=== PATIENT | female | born 1985 | race Caucasian/White ===

== ENCOUNTER 2024-07-04 23:14 | Inpatient (IN) | payer OTHER, SELFPAY ==
[2024-07-04] VITALS (17 sets, daily range): BP systolic 131–188; BP diastolic 70–115; BMI 37.1
--- NOTE | 2024-07-04 16:35 | ED.GENMED ---
History of Present Illness
General
Time Seen by Provider: 07/04/24 16:35
History of Present Illness
History of Present Illness:
TIME OF INITIAL ENCOUNTER: 4:35 PM
HPI: Patient came in by ambulance.
EXAM:
NUMBER AND COMPLEXITY OF PROBLEMS ADDRESSED AT THE ENCOUNTER
� Chronic conditions affecting care:
� Acute Exacerbation and/or Progression of Chronic Illness:
� Differential Diagnosis includes:
AMOUNT AND/OR COMPLEXITY OF DATA TO BE REVIEWED AND ANALYZED
� I performed an independent evaluation of and my interpretation is:
EKG:
CT:
X-rays:
Laboratory Studies:
Other:
� Review of other/old records: No old records available for review in [facility]
� Clinical information was obtained by an independent historian:
� Prescriptions/Medications Considered but not given:
� Further testing considered but not performed:
RISK OF COMPLICATIONS AND/OR MORBIDITY OR MORTALITY OF PATIENT MANAGEMENT
� Social determinants of health affecting care:
� Discussion with other providers:
� Escalation of care including admission/observation vs risk of discharge considered:
ANY OTHER UPDATES:
ED Attending Note
-
Portions of this chart may have been created with voice recognition software.� Occasional wrong word or��sound alike� substitutions may have occurred due to the inherent limitations of voice recognition software.
Discharge Plan
Discharge Date and Time
Print Language: ZIMBABWEAN
[2024-07-04 16:50] LABS: % Basophils 0.5 % (0-2); % Eosinophils 0.3 % (0-6); % Immature Granulocytes 0.6 % (0-0.5); % Lymphocytes 20.1 % (20.5-51.1); % Monocytes 5.5 % (1.7-9.3); Absolute Basophils 0.1 10^3/uL (0-0.2); Absolute Eosinophils 0.1 10^3/uL (0-0.7); Absolute Immature Granulocytes 0.1 10^3/uL (0-0.05); Absolute Lymphocytes 3.3 10^3/uL (1.2-3.4); Absolute Monocytes 0.9 10^3/uL (0.1-0.6); Absolute Neutrophils 11.9 10^3/uL (1.4-6.5); Hematocrit 42.7 % (37.0-47.0); Hemoglobin 14.2 g/dL (12.0-16.0); Mean Corp Hgb Conc. 33.3 g/dL (33.0-37.0); Mean Corpuscular Hgb 29.2 pg (27.0-31.0); Mean Corpuscular Volume 87.7 fL (81.0-99.0); Mean Platelet Volume 9.8 fL (7.4-10.4); Nucleated Red Blood Cells % 0 %; Platelet Count 371 10^3/uL (130-400); Red Blood Cell Count 4.87 10^6/uL (4.20-5.40); White Blood Cell Count 16.4 10^3/uL (4.8-10.8)
[2024-07-04 16:59] LABS: HCG, Serum Qualitative Screen Negative
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
[2024-07-04] MEDS: NSS 1000 IV (17:04)
[2024-07-04] MEDS: ZOFRAN 4 MG IV (17:04)
[2024-07-04 17:08] LABS: ALT (SGPT) 16 U/L (0-35); AST (SGOT) 20 U/L (14-36); Albumin 4.5 g/dl (3.5-5.0); Alkaline Phosphatase 95 U/L (38-126); Blood Urea Nitrogen 17 mg/dl (7-17); Calcium 9.6 mg/dl (8.4-10.2); Carbon Dioxide 21 mmol/L (22-30); Chloride 110 mmol/L (98-107); Estimated Creatinine Clearance 84 ml/min; Glucose 226 mg/dl (70-99); Potassium 3.7 mmol/L (3.5-5.1); Sodium 141 mmol/L (135-145); Total Bilirubin 0.4 mg/dl (0.2-1.3); Total Protein 8.7 g/dl (6.3-8.2); eGFR > 60.00
[2024-07-04] MEDS: TYLENOL 1000 MG PO (17:14)
[2024-07-04 18:05] LABS: Troponin I 0.063 ng/ml
[2024-07-04 18:52] LABS: Amphetamines Negative (Negative); Marijuana Positive (Negative); Tricyclic Antidepressants Negative (Negative)
[2024-07-04 18:53] LABS: Barbiturates Negative (Negative); Benzodiazepines Negative (Negative); Buprenorphine Negative (Negative); Cocaine Negative (Negative); Methadone Negative (Negative); Methamphetamines Negative (Negative); Opiates Negative (Negative); Phencyclidine Negative (Negative)
[2024-07-04 19:01] LABS: Fentanyl, Urine Positive (Negative)
[2024-07-04 20:57] LABS: Troponin I 0.323 ng/ml
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
[2024-07-04] MEDS: TOPROL XL 12.5 MG PO (21:54)
[2024-07-04] MEDS: LOW STRENGTH ASPIRIN 324 MG PO (21:55)
[2024-07-04] MEDS: FLUSH (NSS) 1 FLUSH IV (21:56)
[2024-07-04] MEDS: HEPARIN 4000 UNITS IV (22:07)
[2024-07-04] MEDS: HEPARIN 25000 UNITS/250 ML IV (22:08)
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
[2024-07-04 22:17] LABS: Hematocrit 38.9 % (37.0-47.0); Hemoglobin 13.3 g/dL (12.0-16.0); Mean Corp Hgb Conc. 34.2 g/dL (33.0-37.0); Mean Corpuscular Hgb 29.5 pg (27.0-31.0); Mean Corpuscular Volume 86.3 fL (81.0-99.0); Mean Platelet Volume 9.8 fL (7.4-10.4); Platelet Count 297 10^3/uL (130-400); Red Blood Cell Count 4.51 10^6/uL (4.20-5.40); Red Cell Dist. Width 13.1 % (11.5-14.5); White Blood Cell Count 13.8 10^3/uL (4.8-10.8)
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
[2024-07-04 22:24] LABS: APTT 27.2 Sec (23.4-35.0)
[2024-07-04] MEDS: NITROSTAT (SUBLINGUAL) 0.4 MG SL (23:15)
[2024-07-04] MEDS: PROTONIX 40 MG PO (23:15)
[2024-07-04] MEDS: NITROGLYCERIN PREMIX 250 IV (23:16)
[2024-07-04 23:49] LABS: Glucose - Point of Care 139 mg/dl (70-99)
[2024-07-05] VITALS (62 sets, daily range): BP systolic 101–157; BP diastolic 61–103; BMI 37.1
[2024-07-05] MEDS: NSS 1000 IV ×2 (00:01→12:48)
[2024-07-05] MEDS: TUMS CHEWABLE TABLET 200 MG PO (00:34)
[2024-07-05 00:56] LABS: Lipase 118 U/L (23-300)
[2024-07-05 01:10] LABS: Troponin I 0.458 ng/ml
[2024-07-05] MEDS: PEPCID 20 MG IV (03:03)
[2024-07-05] MEDS: NSS (PRESERVATIVE FREE) 8 ML IV (03:04)
[2024-07-05 04:22] LABS: Hematocrit 34.5 % (37.0-47.0); Hemoglobin 12.1 g/dL (12.0-16.0); Mean Corp Hgb Conc. 35.1 g/dL (33.0-37.0); Mean Corpuscular Hgb 30.4 pg (27.0-31.0); Mean Corpuscular Volume 86.7 fL (81.0-99.0); Mean Platelet Volume 10.1 fL (7.4-10.4); Platelet Count 247 10^3/uL (130-400); Red Blood Cell Count 3.98 10^6/uL (4.20-5.40); White Blood Cell Count 10.2 10^3/uL (4.8-10.8)
[2024-07-05 04:35] LABS: APTT 40.4 Sec (23.4-35.0)
[2024-07-05 04:53] LABS: ALT (SGPT) 13 U/L (0-35); AST (SGOT) 21 U/L (14-36); Albumin 3.5 g/dl (3.5-5.0); Alkaline Phosphatase 80 U/L (38-126); Blood Urea Nitrogen 14 mg/dl (7-17); Calcium 9.3 mg/dl (8.4-10.2); Carbon Dioxide 22 mmol/L (22-30); Chloride 111 mmol/L (98-107); Estimated Creatinine Clearance > 125 ml/min; Glucose 104 mg/dl (70-99); HDL Cholesterol 47 mg/dl; LDL Cholesterol, Calculated 119 mg/dl; Lipase 96 U/L (23-300); Magnesium 1.9 mg/dl (1.6-2.3); Potassium 3.8 mmol/L (3.5-5.1); Sodium 139 mmol/L (135-145); Total Bilirubin 0.5 mg/dl (0.2-1.3); Total Cholesterol 195 mg/dl (50-199); Total Protein 6.7 g/dl (6.3-8.2); Triglyceride 149 mg/dl (10-149); Very Low Density Lipoprotein 29 mg/dl (0-30); eGFR > 60.00
[2024-07-05 04:58] LABS: Troponin I 0.374 ng/ml
[2024-07-05 05:18] LABS: TSH Reflex To Free T4 1.64 uIU/ml (0.47-4.68)
[2024-07-05] MEDS: TOPROL XL 25 MG PO ×2 (08:15→11:35)
[2024-07-05] MEDS: LOW STRENGTH ASPIRIN 81 MG PO (08:15)
[2024-07-05] MEDS: TYLENOL 650 MG PO (08:24)
[2024-07-05 08:55] LABS: Troponin I 0.331 ng/ml
[2024-07-05] MEDS: PROTONIX 40 MG PO (09:28)
[2024-07-05] MEDS: ZOFRAN 4 MG IV ×2 (09:28→20:00)
[2024-07-05 09:34] LABS: Glycohemoglobin (HgbA1c) 5.4 % (4.0-5.6)
--- NOTE | 2024-07-05 10:17 | W.PN.CD ---
Today's Communication / Plan
-
increase metoprolol to 50mg daily
start losartan 25mg
add on lipid profile
Impression / Plan
-
.
Unresponsive episode. Unresponsiveness likely related to drug use.
- Issues related to substance abuse directed by primary team
.
Elevated troponin due to nonischemic myocardial injury likely in the setting of unintentional fentanyl use and Hypertension
- Currently chest pain-free without clear evidence of acute ischemic change on ECG
- has not had anginal equivalent.
- Echocardiogram
-Treat hypertension
-no role for iv heparin
.
Coronary artery disease/coronary artery bypass grafting [facility] 2023.
- Obtain records
-she has not been taking her medications due to cost
- Would resume aspirin, beta-jeremy and statin
-will aim to choose low cost options as no health insurance until August---discussed [facility] plus, [facility]les
HTN:
-adding on medications
-increase metoprolol to 50mg daily
-add back losartan
Substance abuse. Event this evening as described above.
she denies cocaine use
Management directed by primary team
.
Anxiety.
.
GERD -longstanding issue. Daily use of Tums
- PPI
Physical Exam
Vital Signs/Labs
Vital Signs
Temp Pulse Resp BP Pulse Ox
98.2 F 87 14 151/75 98
07/05/24 07:00 07/05/24 08:00 07/05/24 08:00 07/05/24 08:00 07/05/24 06:23
07/04/24 07/05/24 07/06/24
06:59 06:59 06:59
Actual Weight 229 lb 11.547 oz
07/05/24 04:08
07/05/24 04:08
APTT 40.4 Sec (23.4-35.0) H 07/05/24 04:08
Magnesium 1.9 mg/dl (1.6-2.3) 07/05/24 04:08
Triglycerides 149 mg/dl (10-149) 07/05/24 04:08
LDL Cholesterol, Calc 119 mg/dl 07/05/24 04:08
VLDL Cholesterol, Calc 29 mg/dl (0-30) 07/05/24 04:08
HDL Cholesterol 47 mg/dl 07/05/24 04:08
LAB Results
07/04/24 07/04/24 07/05/24
17:29 20:16 00:38
Troponin I 0.063 H* 0.323 H* D 0.458 H* D
07/05/24 07/05/24 07/05/24
02:00 04:08 07:54
Troponin I Cancelled 0.374 H* 0.331 H*
Physical Exam
Constitutional: No acute distress
Cardiovascular: Rhythm & rate is regular, Pedal edema is absent, JVD pressure is normal, Systolic murmur absent and Diastolic murmur absent
Respiratory: Respiratory effort normal, Lungs clear to auscul., Wheeze Absent, Crackles Absent and Rhonchi Absent
Neuro/Psych: AO x 3
Data Reviewed
-
Date of Service: July 05, 2024
Medical Decision Making: Review of Case with other Provider (adding antihypertensives, stopping heparin. d/w Dr Fontenot)
[2024-07-05] MEDS: COZAAR 25 MG PO (11:35)
[2024-07-05 12:49] LABS: Glucose - Point of Care 110 mg/dl (70-99)
--- NOTE | 2024-07-05 12:52 | W.PN.HOSP.TC ---
Today's Communication/Plan
-
Continue with GDMT
Stop IV fluid later today
Monitor blood pressure and adjust meds as needed
ECHO pending
Discontinue heparin drip
Assessment / Plan
Assessment / Plan
Non ischemic myocardial injury
CAD status post CABG
-Discontinue Heparin drip. Did not require nitroglycerin drip
-Denies any chest pain currently
-Continue with aspirin, statin and beta-jeremy
-Echocardiogram pending
-Patient stopped taking medication due to cost. Goal to maintain patient on generic medication. Recommend patient to check cost at [facility], [facility] plus. Patient verbalized understanding.
Unresponsive episode likely secondary to drug-related
- Troponin ordered. Echo pending. Monitor on telemetry.
- Gentle IV fluids. Monitor blood pressure and vital signs.
Unintentional Fentanyl Overdose,
-Suspect marijuana blunt was laced with fentanyl
Leukocytosis likely reactive
-Resolved. Afebrile.
Hyperglycemia, no prior reports of diabetes
-Check HgbA1c at 5.4.
-Monitor sugars and continue coverage insulin
Essential Hypertension
-Resume Toprol XL and dose has been adjusted. Also started on losartan.
Hyperlipidemia
-Resume Lipitor. LDL 119.
Generalized Anxiety Disorder
-Patient has medical marijuana card and smokes daily
Class II Obesity Due to Excess Calories
-Affects all aspects of care
-Consult Dietary
DVT proph: Lovenox
Code Status: Full Code
Discussed with cardiology
Anticipated Discharge: > 48 hours
Subjective/Interval History
-
Date of Service: July 05, 2024
denies any lightheadedness or dizziness or chest pain
Objective Data
-
Labs:
Laboratory Results
07/05/24 07/05/24
04:08 10:55
WBC 10.2
Hgb 12.1
Hct 34.5 L
Plt Count 247
APTT 40.4 H Cancelled
Sodium 139
Potassium 3.8
Chloride 111 H
Carbon Dioxide 22
BUN 14
Creatinine 0.7
Glucose 104 H
Calcium 9.3
Total Bilirubin 0.5
AST 21
ALT 13
Alkaline Phosphatase 80
Vital Signs:
Vital Signs
Temp Pulse Resp BP Pulse Ox
98.0 F 61 16 151/80 98
07/05/24 12:43 07/05/24 12:43 07/05/24 12:43 07/05/24 12:43 07/05/24 12:43
Physical Exam
-
General: Well Developed and No Apparent Distress
HEENT: Normocephalic, Atraumatic and Moist Mucous Membranes
Respiratory: Clear to Auscultation
Cardiac: Regular Rhythm and S1/S2; Negative Murmur, Rub or Gallop
GI: Soft, Nontender, Nondistended and Normal Bowel Sounds; Negative Organomegaly
Rectal: Deferred by Provider
Musculoskeletal: No Clubbing, No Cyanosis and No Edema
Skin: Other (diffuse body tattoo noted ); Negative Rash
Neuro: Awake, AO x 3, No Motor Deficits and Nonfocal/Grossly Intact
Psych: Calm
[2024-07-05 16:13] LABS: Glucose - Point of Care 100 mg/dl (70-99)
[2024-07-05] MEDS: LIPITOR 80 MG PO (17:59)
[2024-07-05] MEDS: ATIVAN 0.5 MG PO (21:12)
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
[2024-07-05 21:54] LABS: Glucose - Point of Care 106 mg/dl (70-99)
[2024-07-06 03:48] VITALS: BP 131/51
[2024-07-06 07:35] VITALS: BP 159/108
[2024-07-06 08:32] LABS: Glucose - Point of Care 94 mg/dl (70-99)
--- NOTE | 2024-07-06 08:42 | W.PN.CD ---
Today's Communication / Plan
-
continue current medictions:
Losartan 25mg po daily
Metoprolol Succinate 50mg po daily
Atorvastatin 80mg daily
asa 81 mg daily
follow up with typical op cardiology
I will sign off
Impression / Plan
-
.
Unresponsive episode. Unresponsiveness likely related to drug use.
- Issues related to substance abuse directed by primary team
.
Elevated troponin due to nonischemic myocardial injury likely in the setting of unintentional fentanyl use and Hypertension
- Currently chest pain-free without clear evidence of acute ischemic change on ECG
- has not had anginal equivalent.
-ECHO NORMAL
Coronary artery disease/coronary artery bypass grafting [facility] 2023.
- Obtain records
-she has not been taking her medications due to cost
-conitnue aspirin, beta-jeremy and statin
-will aim to choose low cost options as no health insurance until August---discussed [facility] plus, [facility]
HTN:
-improved
-continue current dosing
Substance abuse. Event this evening as described above.
she denies cocaine use
Management directed by primary team
.
Anxiety.
.
GERD -longstanding issue. Daily use of Tums
- PPI
Subjective:
she is feeling good, no complaints
TTE: 07/05/24 CONCLUSIONS
Normal left ventricular size and function.
LV ejection fraction is 55-60%.
No significant valvular disease.
No prior study available for comparison.
Physical Exam
Vital Signs/Labs
Vital Signs
Temp Pulse Resp BP Pulse Ox
98.0 F 58 16 131/51 98
07/06/24 03:48 07/06/24 03:48 07/06/24 03:48 07/06/24 03:48 07/06/24 03:48
07/05/24 07/06/24 07/07/24
06:59 06:59 06:59
Actual Weight 229 lb 11.547 oz
07/05/24 04:08
APTT Cancelled 07/05/24 10:55
Magnesium 1.9 mg/dl (1.6-2.3) 07/05/24 04:08
Triglycerides 149 mg/dl (10-149) 07/05/24 04:08
LDL Cholesterol, Calc 119 mg/dl 07/05/24 04:08
VLDL Cholesterol, Calc 29 mg/dl (0-30) 07/05/24 04:08
HDL Cholesterol 47 mg/dl 07/05/24 04:08
LAB Results
07/04/24 07/04/24 07/05/24
17:29 20:16 00:38
Troponin I 0.063 H* 0.323 H* D 0.458 H* D
07/05/24 07/05/24 07/05/24
02:00 04:08 07:54
Troponin I Cancelled 0.374 H* 0.331 H*
Physical Exam
Constitutional: No acute distress
Cardiovascular: Rhythm & rate is regular, Pedal edema is absent, JVD pressure is normal, Systolic murmur absent and Diastolic murmur absent
Respiratory: Respiratory effort normal, Lungs clear to auscul., Wheeze Absent, Crackles Absent and Rhonchi Absent
Neuro/Psych: AO x 3
Data Reviewed
-
Date of Service: July 06, 2024
EKG: Other (sinus on tele)
[2024-07-06 08:49] LABS: Blood Urea Nitrogen 17 mg/dl (7-17); Calcium 9.9 mg/dl (8.4-10.2); Carbon Dioxide 23 mmol/L (22-30); Chloride 109 mmol/L (98-107); Estimated Creatinine Clearance 102 ml/min; Glucose 86 mg/dl (70-99); Potassium 4.8 mmol/L (3.5-5.1); Sodium 141 mmol/L (135-145); eGFR > 60.00
[2024-07-06] MEDS: PROTONIX 40 MG PO (09:43)
[2024-07-06] MEDS: LOW STRENGTH ASPIRIN 81 MG PO (09:43)
[2024-07-06] MEDS: TOPROL XL 50 MG PO (09:43)
[2024-07-06] MEDS: COZAAR 25 MG PO (09:43)
[2024-07-06] MEDS: TYLENOL 650 MG PO (09:44)
--- NOTE | 2024-07-06 10:33 | W.PN.HOSP.TC ---
Addendum entered and electronically signed by Jason Fontenot MD 07/06/24 12:56:
JB on admission likely secondary dehydration
Resolved.
Original Note:
Today's Communication/Plan
-
dc home
Assessment / Plan
Assessment / Plan
Non ischemic myocardial injury
CAD status post CABG
-Discontinue Heparin drip. Did not require nitroglycerin drip
-Denies any chest pain currently
-Continue with aspirin, statin and beta-jeremy
-Echocardiogram EF 55-60%.
-Patient stopped taking medication due to cost. Goal to maintain patient on generic medication. Recommend patient to check cost at [facility], [facility] plus. Patient verbalized understanding.
Unresponsive episode likely secondary to drug-related
- Troponin ordered. Echo noted Monitor on telemetry.
- s/p IVF.. Monitor blood pressure and vital signs.
Unintentional Fentanyl Overdose,
-Suspect marijuana blunt was laced with fentanyl
Leukocytosis likely reactive
-Resolved. Afebrile.
Hyperglycemia, no prior reports of diabetes
-Check HgbA1c at 5.4.
-Monitor sugars and continue coverage insulin
Essential Hypertension
-Resume Toprol XL and dose has been adjusted. Also started on losartan.
Hyperlipidemia
-Resume Lipitor. LDL 119.
Generalized Anxiety Disorder
-Patient has medical marijuana card and smokes daily
Class II Obesity Due to Excess Calories
-Affects all aspects of care
-Consult Dietary
DVT proph: Lovenox
Code Status: Full Code
Discussed with cardiology-OKAY FOR dc. OP f/u with primary acls nurse
Please provide [facility] info in case needed-pt verbalized understanding for the clinic too
More than 30 minutes spent in discharge including
Final examination of the patient
Summarizing hospital stay
Instructions for continuing care to all relevant caregivers
Preparation of discharge records, prescriptions, and referral forms
Total time spent (in minutes): 50
Anticipated Discharge: Today
Subjective/Interval History
-
Date of Service: July 06, 2024
Denies lightheadedness or dizziness
Objective Data
-
Labs:
Laboratory Results
07/06/24
07:29
Sodium 141
Potassium 4.8 D
Chloride 109 H
Carbon Dioxide 23
BUN 17
Creatinine 0.9
Glucose 86
Calcium 9.9
Vital Signs:
Vital Signs
Temp Pulse Resp BP Pulse Ox
98.0 F 65 18 159/108 97
07/06/24 07:35 07/06/24 07:35 07/06/24 07:35 07/06/24 07:35 07/06/24 07:35
I&O
07/05/24 07/06/24 07/07/24
06:59 06:59 06:59
Intake Total 480 / 480
Balance 480 / 480
Physical Exam
-
General: Well Developed and No Apparent Distress
HEENT: Normocephalic, Atraumatic and Moist Mucous Membranes
Respiratory: Clear to Auscultation
Cardiac: Regular Rhythm and S1/S2; Negative Murmur, Rub or Gallop
GI: Soft, Nontender, Nondistended and Normal Bowel Sounds; Negative Organomegaly
Rectal: Deferred by Provider
Musculoskeletal: No Clubbing, No Cyanosis and No Edema
Skin: Other (diffuse body tattoo noted ); Negative Rash
Neuro: Awake, AO x 3, No Motor Deficits and Nonfocal/Grossly Intact
Psych: Calm
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
--- NOTE | 2024-07-06 10:53 | PN.CDI ---
CDI
- -
CDI:
Physician Documentation Request
Admit Date: 07/04/24 23:14
Dear Doctor Po,
Please review the following and provide your response in the progress notes.
Clinical Indicators:
Pt admitted with unintentional fentanyl OD /found unresponsive
Renal functions are as below / Pt did get IVFs
Laboratory Tests
07/04/24 07/05/24
16:41 04:08
Creatinine 1.1 H 0.7
Please Clarify which of the following accurately represents the patient's renal status:
JB
abnormal lab value only
Other ( please specify)
Criteria for JB*
1 Increase in serum creatinine by > or = to 0.3 mg/dL (> or = to 26.5 micromol/L) within 48 hours, OR
2 Increase in serum creatinine to > or = to 1.5 times baseline, which is known or presumed to have occurred within 7 days, OR
3 Urine volume < 0.5 nL/kg/hour for six hours
Use of terms such as suspected, likely, concern for, or probable (associated with a specific diagnosis that is being evaluated, monitored, or treated as if it exists) are acceptable and can be coded in the inpatient setting, when documented at the
time of discharge.
Thank you,
Dayna Hartman RN
CDI Specialist
[facility] [place] [facility]
Please use your independent medical judgment in providing your response.
*Source: Kidney Disease: Improving Global Outcomes (KDIGO) 2012
[2024-07-06 11:24] VITALS: BP 148/80
[2024-07-06 11:46] LABS: Glucose - Point of Care 104 mg/dl (70-99)
[2024-07-06] MEDS: MIRALAX 17 GRAMS PO (12:13)
[2024-07-06] MEDS: SENOKOT-S 1 TABLET PO (12:14)
--- NOTE | 2024-07-06 13:03 | CM ---
Chart reviewed and patient has been cleared for discharge today, home no needs, patient lives with father and brother in a 2 story home, patient is independent with adl's and ambulation, no dme, patient drives, per patient she is due to start
working next week. No insurance currently, met with [facility].
Ph[facility]acy: [facility]
Plan; Home no needs.
== END 2024-07-06 16:41 | disposition home or self-care (01) | DRG 918 ==
LOC: 4 EAST ACU 23:14
PROVIDERS: Physician Assistant Medical; Registered Nurse; ADMITTING PHYSICIAN Internal Medicine; ATTENDING PHYSICIAN Hospitalist; CONSULT PHYSICIAN Internal Medicine Cardiovascular Disease; EMERGENCY PHYSICIAN Emergency Medicine; FAMILY PHYSICIAN Family Medicine
DX: T40.411A Poisoning by fentanyl or fentanyl analogs, accidental (unintentional), initial encounter (principal); I5A Non-ischemic myocardial injury (non-traumatic); N17.9 Acute kidney failure, unspecified; Z79.02 Long term (current) use of antithrombotics/antiplatelets; F41.1 Generalized anxiety disorder; I11.9 Hypertensive heart disease without heart failure; Z79.82 Long term (current) use of aspirin; F12.90 Cannabis use, unspecified, uncomplicated; E66.812 Obesity, class 2; Z68.37 Body mass index [BMI] 37.0-37.9, adult; E78.00 Pure hypercholesterolemia, unspecified; Z91.128 Patient's intentional underdosing of medication regimen for other reason; F17.200 Nicotine dependence, unspecified, uncomplicated; I25.10 Atherosclerotic heart disease of native coronary artery without angina pectoris; Z79.899 Other long term (current) drug therapy
CPT/HCPCS: 71046; 80048; 80053; 80061; 80306; 80307; 82248; 82962; 83036; 83690; 83735; 84443; 84484; 84703; 85025; 85027; 85730; 93005; 93306